=== PATIENT | male | born 1990 | race Caucasian/White ===

== ENCOUNTER 2024-03-09 07:06 | Emergency (ER) | payer SELFPAY | END 2024-03-09 14:06 | disposition short-term general hospital (02) | LOC: CSHERS 07:06 | DX: E11.10 Type 2 diabetes mellitus with ketoacidosis without coma (principal); K85.90 Acute pancreatitis without necrosis or infection, unspecified | CPT/HCPCS: 36415; 36416; 74177; 80053; 80306; 80307; 81001; 82010; 82805; 83605; 83690; 84484; 85025; 93005; 96361; 96365; 96366; 96375; 96376; C9113; J1815; J2270; J2405; J2550; J2765; J3480; J7070; Q9967 ==